=== PATIENT | female | born 1995 | race Caucasian/White ===

== ENCOUNTER → 2020-06-25 | Outpatient (CLI) | payer SELFPAY | LOC: M LABSMTC 10:01 → EEVIPCON 10:01 | PROVIDERS: ATTEND Pediatrics | DX: Z20.828 Contact with and (suspected) exposure to other viral communicable diseases (principal) ==

== ENCOUNTER → 2021-05-31 | Outpatient (REF) | payer BC | LOC: M LAB REF 16:59 | PROVIDERS: ATTEND Physician Assistant | DX: J06.9 Acute upper respiratory infection, unspecified (principal) ==

== ENCOUNTER → 2021-10-07 | Outpatient (CLI) | payer BC ==
[2021-10-07 11:50] LABS: BASO % 0.6 % (0.0-1.0); EOS # 0.1 10^3/uL (0.0-0.5); EOS % 2.1 % (0.0-3.0); HEMATOCRIT 37.1 % (36.0-47.0); HEMOGLOBIN 12.7 g/dl (12.0-15.5); LYMPH # 2.5 10^3/uL (1.5-5.0); LYMPH % 36.6 % (24.0-44.0); MEAN CORPUSCULAR HEMOGLOBIN 30.5 pg (27.0-33.0); MEAN CORPUSCULAR HGB CONC 34.2 g/dl (32.0-36.5); MONO # 0.6 10^3/uL (0.0-0.8); NEUTROPHILS # 3.5 10^3/uL (1.5-8.5); NEUTROPHILS % 51.4 % (36.0-66.0); PLATELET COUNT, AUTOMATED 209 10^3/uL (150-450); RED BLOOD COUNT 4.17 10^6/uL (4.00-5.40); WHITE BLOOD COUNT 6.7 10^3/uL (4.0-10.0)
[2021-10-07 12:22] LABS: BLOOD UREA NITROGEN 22 MG/DL (7-18); CARBON DIOXIDE LEVEL 27 MEQ/L (21-32); CHLORIDE LEVEL 107 MEQ/L (98-107); CREATININE FOR GFR 0.81 MG/DL (0.55-1.30); GLOMERULAR FILTRATION RATE > 60.0 (>60); GLUCOSE, FASTING 83 MG/DL (70-100); SODIUM LEVEL 139 MEQ/L (136-145)
[2021-10-07 12:23] LABS: ALT/SGPT 28 U/L (12-78); BILIRUBIN,TOTAL 0.5 MG/DL (0.2-1.0); CALCIUM LEVEL 8.6 MG/DL (8.5-10.1); FERRITIN 57 NG/ML (8-252); FREE T4 1.57 NG/DL (0.76-1.46); IRON (FE) 144 UG/DL (50-170); PERCENT SATURATION 55.4 % (13.2-45.0); THYROID STIMULATING HORMONE 0.808 uIU/ML (0.358-3.740); TOTAL IRON BINDING CAPACITY 260 UG/DL (250-450); TOTAL PROTEIN 7.2 GM/DL (6.4-8.2)
[2021-10-07 12:40] LABS: FOLATE 22.7 NG/ML; VITAMIN B12 LEVEL 615 PG/ML
== END ==
LOC: M LAB 10:53
PROVIDERS: ATTEND Nurse Practitioner Adult Health
DX: Z00.00 Encounter for general adult medical examination without abnormal findings (principal)

== ENCOUNTER → 2021-12-14 | Outpatient (CLI) | payer BC ==
[2021-12-14 13:28] LABS: BASO % 0.4 % (0.0-1.0); EOS # 0.1 10^3/uL (0.0-0.5); EOS % 2.1 % (0.0-3.0); LYMPH % 30.1 % (24.0-44.0); MEAN CORPUSCULAR HGB CONC 34.3 g/dl (32.0-36.5); MEAN CORPUSCULAR VOLUME 87.5 fl (80.0-96.0); MONO # 0.6 10^3/uL (0.0-0.8); MONO % 8.7 % (2.0-8.0); NEUTROPHILS % 58.6 % (36.0-66.0); PLATELET COUNT, AUTOMATED 219 10^3/uL (150-450); WHITE BLOOD COUNT 6.8 10^3/uL (4.0-10.0)
[2021-12-14 14:44] LABS: HEPATITIS C VIRUS ABY INDEX 0.1 INDEX (<0.8); HIV 1&2 SCREEN CENTAUR NEGATIVE (NEGATIVE)
[2021-12-14 14:52] LABS: GC DNA AMPLIFICATION NEGATIVE (NEGATIVE)
== END ==
LOC: M PLALAB 09:05
PROVIDERS: ATTEND Obstetrics & Gynecology
DX: Z34.80 Encounter for supervision of other normal pregnancy, unspecified trimester (principal); Z3A.00 Weeks of gestation of pregnancy not specified

== ENCOUNTER → 2022-01-05 | Outpatient (CLI) | payer BC ==
[2022-01-05 16:25] LABS: BASO % 0.2 % (0.0-1.0); HEMATOCRIT 33.3 % (36.0-47.0); HEMOGLOBIN 11.6 g/dl (12.0-15.5); LYMPH # 2.3 10^3/uL (1.5-5.0); LYMPH % 24.5 % (24.0-44.0); MEAN CORPUSCULAR HEMOGLOBIN 30.7 pg (27.0-33.0); MEAN CORPUSCULAR HGB CONC 34.8 g/dl (32.0-36.5); MEAN CORPUSCULAR VOLUME 88.1 fl (80.0-96.0); MONO # 0.7 10^3/uL (0.0-0.8); MONO % 7.7 % (2.0-8.0); NEUTROPHILS # 6.2 10^3/uL (1.5-8.5); NEUTROPHILS % 67.3 % (36.0-66.0); PLATELET COUNT, AUTOMATED 211 10^3/uL (150-450); RED BLOOD COUNT 3.78 10^6/uL (4.00-5.40); WHITE BLOOD COUNT 9.3 10^3/uL (4.0-10.0)
[2022-01-05 17:00] LABS: FERRITIN 64 NG/ML (8-252); FREE T4 1.38 NG/DL (0.76-1.46); IRON (FE) 105 UG/DL (50-170); PERCENT SATURATION 32.4 % (13.2-45.0); THYROID STIMULATING HORMONE 0.811 uIU/ML (0.358-3.740); TOTAL IRON BINDING CAPACITY 324 UG/DL (250-450)
[2022-01-05 17:01] LABS: THYROGLOBULIN ANTIBODY < 15.0 U/ML (<60.0); THYROID PEROXIDASE ANTIBODY 52.7 U/ML (<60.0)
[2022-01-05 17:02] LABS: FOLATE 19.7 NG/ML
[2022-01-05 17:41] LABS: VITAMIN B12 LEVEL 449 PG/ML
== END ==
LOC: M LAB 15:58
PROVIDERS: ATTEND Nurse Practitioner Adult Health
DX: R94.6 Abnormal results of thyroid function studies (principal)

== ENCOUNTER → 2022-01-30 | Outpatient (CLI) | payer BC | LOC: M WHC 07:14 | PROVIDERS: ATTEND Advanced Practice Midwife | DX: Z34.82 Encounter for supervision of other normal pregnancy, second trimester (principal) ==

== ENCOUNTER → 2022-03-10 | Outpatient (CLI) | payer BC | LOC: M WHC 07:01 | PROVIDERS: ATTEND Obstetrics & Gynecology | DX: Z36.2 Encounter for other antenatal screening follow-up (principal); Z3A.25 25 weeks gestation of pregnancy ==

== ENCOUNTER → 2022-04-05 | Outpatient (CLI) | payer BC ==
[2022-04-05 10:38] LABS: HEMATOCRIT 33.8 % (36.0-47.0); HEMOGLOBIN 11.3 g/dl (12.0-15.5); MEAN CORPUSCULAR HGB CONC 33.4 g/dl (32.0-36.5); MEAN CORPUSCULAR VOLUME 92.6 fl (80.0-96.0); PLATELET COUNT, AUTOMATED 207 10^3/uL (150-450); RED BLOOD COUNT 3.65 10^6/uL (4.00-5.40); WHITE BLOOD COUNT 8.3 10^3/uL (4.0-10.0)
[2022-04-05 12:16] LABS: GC DNA AMPLIFICATION NEGATIVE (NEGATIVE)
== END ==
LOC: M PLALAB 07:04
PROVIDERS: ATTEND Obstetrics & Gynecology
DX: Z34.02 Encounter for supervision of normal first pregnancy, second trimester (principal)

== ENCOUNTER → 2022-04-10 | Outpatient (CLI) | payer BC | LOC: M WHC 06:46 | PROVIDERS: ATTEND Advanced Practice Midwife | DX: Z34.03 Encounter for supervision of normal first pregnancy, third trimester (principal); Z3A.29 29 weeks gestation of pregnancy ==

== ENCOUNTER → 2022-05-19 | Outpatient (REF) | payer BC | LOC: M PLALAB 15:57 | PROVIDERS: ATTEND Advanced Practice Midwife | DX: Z36.89 Encounter for other specified antenatal screening (principal); Z3A.35 35 weeks gestation of pregnancy ==

== ENCOUNTER → 2022-12-08 | Outpatient (REF) | payer BC | LOC: M SFHCWAGY 17:45 | PROVIDERS: ATTEND Nurse Practitioner Family | DX: Z12.4 Encounter for screening for malignant neoplasm of cervix (principal) | CPT/HCPCS: 87624; G0123 ==

== ENCOUNTER → 2023-03-16 | Outpatient (CLI) | payer BC ==
[2023-03-16 14:24] LABS: FREE T4 1.26 NG/DL (0.89-1.76)
[2023-03-16 14:26] LABS: THYROID STIMULATING HORMONE 0.852 uIU/ML (0.55-4.78)
== END ==
LOC: M PLALAB 10:18
PROVIDERS: ATTEND Nurse Practitioner Adult Health
DX: R94.6 Abnormal results of thyroid function studies (principal)

== ENCOUNTER → 2024-01-04 | Outpatient (REF) | payer BC ==
[2024-01-08 16:12] LABS: HPV APTIMA Not Detected (Not Detected)
== END ==
LOC: M SFHCWAGY 17:00
PROVIDERS: ATTEND Nurse Practitioner Family
DX: Z12.4 Encounter for screening for malignant neoplasm of cervix (principal)
CPT/HCPCS: 87624; G0123

== ENCOUNTER → 2024-04-08 | Outpatient (CLI) | payer BC ==
[2024-04-08 13:18] LABS: HEMATOCRIT 35.1 % (36.0-47.0); HEMOGLOBIN 11.9 g/dl (12.0-15.5); MEAN CORPUSCULAR HEMOGLOBIN 30.3 pg (27.0-33.0); MEAN CORPUSCULAR HGB CONC 33.9 g/dl (32.0-36.5); MEAN CORPUSCULAR VOLUME 89.3 fl (80.0-96.0); PLATELET COUNT, AUTOMATED 231 10^3/uL (150-450); RED BLOOD COUNT 3.93 10^6/uL (4.00-5.40); WHITE BLOOD COUNT 7.8 10^3/uL (4.0-10.0)
[2024-04-08 13:48] LABS: HIV 1&2 SCREEN NEGATIVE (NEGATIVE)
[2024-04-08 13:57] LABS: HEPATITIS C VIRUS ABY INDEX < 0.02 INDEX (<0.8)
[2024-04-08 14:39] LABS: GC DNA AMPLIFICATION NEGATIVE (NEGATIVE)
== END ==
LOC: M PLALAB 11:01
PROVIDERS: ATTEND Advanced Practice Midwife
DX: Z34.81 Encounter for supervision of other normal pregnancy, first trimester (principal); Z3A.00 Weeks of gestation of pregnancy not specified

== ENCOUNTER → 2024-06-05 | Outpatient (CLI) | payer BC | LOC: M WHC 07:59 | PROVIDERS: ATTEND Advanced Practice Midwife | DX: Z34.82 Encounter for supervision of other normal pregnancy, second trimester (principal); Z3A.19 19 weeks gestation of pregnancy ==

== ENCOUNTER → 2024-07-14 | Outpatient (CLI) | payer BC | LOC: M WHC 07:04 | PROVIDERS: ATTEND Advanced Practice Midwife | DX: O34.211 Maternal care for low transverse scar from previous cesarean delivery (principal); Z3A.25 25 weeks gestation of pregnancy ==

== ENCOUNTER → 2024-07-21 | Outpatient (CLI) | payer BC | LOC: M WHC 09:01 | PROVIDERS: ATTEND Advanced Practice Midwife | DX: O36.5990 Maternal care for other known or suspected poor fetal growth, unspecified trimester, not applicable or unspecified (principal) ==

== ENCOUNTER → 2024-07-21 | Outpatient (CLI) | payer BC ==
[2024-07-22 07:09] LABS: RUBELLA IgG FOR TORCH EVAL 1.24 index (Immune >0.99); TOXOPLASMA IgG ABY <3.0 IU/mL (0.0-7.1)
[2024-07-22 12:43] LABS: CYTOMEGALOVIRUS ANTIBODY IGG < 0.60 U/mL (<0.60); CYTOMEGALOVIRUS IgM ANTIBODY < 30.00 AU/mL (<30.00)
[2024-07-22 12:46] LABS: HSV 1 IGG TYPE SPECIFIC < 0.90 index (<0.90); HSV 2 IGG TYPE SPECIFIC < 0.90 index (<0.90)
== END ==
LOC: M PLALAB 09:41
PROVIDERS: ATTEND Advanced Practice Midwife
DX: O36.5990 Maternal care for other known or suspected poor fetal growth, unspecified trimester, not applicable or unspecified (principal)

== ENCOUNTER → 2024-07-28 | Outpatient (CLI) | payer BC | LOC: M WHC 09:26 | PROVIDERS: ATTEND Advanced Practice Midwife | DX: O36.5990 Maternal care for other known or suspected poor fetal growth, unspecified trimester, not applicable or unspecified (principal) ==

== ENCOUNTER → 2024-08-04 | Outpatient (CLI) | payer BC | LOC: M WHC 09:37 | PROVIDERS: ATTEND Advanced Practice Midwife | DX: O36.5930 Maternal care for other known or suspected poor fetal growth, third trimester, not applicable or unspecified (principal); Z3A.28 28 weeks gestation of pregnancy ==

== ENCOUNTER → 2024-08-07 | Outpatient (CLI) | payer BC ==
[2024-08-07 17:23] LABS: HEMATOCRIT 31.5 % (36.0-47.0); HEMOGLOBIN 10.9 g/dl (12.0-15.5); MEAN CORPUSCULAR HEMOGLOBIN 31.5 pg (27.0-33.0); MEAN CORPUSCULAR HGB CONC 34.6 g/dl (32.0-36.5); PLATELET COUNT, AUTOMATED 236 10^3/uL (150-450); RED BLOOD COUNT 3.46 10^6/uL (4.00-5.40); WHITE BLOOD COUNT 8.4 10^3/uL (4.0-10.0)
[2024-08-07 17:49] LABS: GLUCOSE CHALLENGE TEST 1 HOUR 128 MG/DL (LESS THAN 140)
[2024-08-07 18:38] LABS: GC DNA AMPLIFICATION NEGATIVE (NEGATIVE)
[2024-08-07 19:25] LABS: HIV 1&2 SCREEN NEGATIVE (NEGATIVE)
[2024-08-07 19:33] LABS: HEPATITIS C VIRUS ABY INDEX < 0.02 INDEX (<0.8)
== END ==
LOC: M PLALAB 13:59
PROVIDERS: ATTEND Nurse Practitioner Family
DX: Z34.82 Encounter for supervision of other normal pregnancy, second trimester (principal); Z3A.00 Weeks of gestation of pregnancy not specified

== ENCOUNTER → 2024-08-11 | Outpatient (CLI) | payer BC | LOC: M WHC 13:43 | PROVIDERS: ATTEND Advanced Practice Midwife | DX: O36.5990 Maternal care for other known or suspected poor fetal growth, unspecified trimester, not applicable or unspecified (principal); Z3A.29 29 weeks gestation of pregnancy ==

== ENCOUNTER 2024-08-14 11:53 | Outpatient (CLI) | payer BC ==
[~2024-08-14] VITALS: Ht 157.5 cm; Wt 76.8 kg
[2024-08-14] MEDS ORDERED: PRENTAB9 PO (12:11)
[2024-08-14 12:12] VITALS: BP 126/70
== END 2024-08-14 14:30 | disposition home or self-care (01) ==
LOC: M LDO 11:53
PROVIDERS: ATTEND Advanced Practice Midwife
DX: O40.3XX9 Polyhydramnios, third trimester, other fetus (principal); O36.8339 Maternal care for abnormalities of the fetal heart rate or rhythm, third trimester, other fetus; O34.219 Maternal care for unspecified type scar from previous cesarean delivery; Z3A.29 29 weeks gestation of pregnancy; I83.92 Asymptomatic varicose veins of left lower extremity
CPT/HCPCS: 59025; 76815; 76819; 76820; G0463

== ENCOUNTER → 2024-08-18 | Outpatient (CLI) | payer BC ==
[~2024-08-18] MED LIST: PRENTAB9 PO
== END ==
LOC: M WHC 10:34
PROVIDERS: ATTEND Advanced Practice Midwife
DX: O36.8930 Maternal care for other specified fetal problems, third trimester, not applicable or unspecified (principal); Z3A.30 30 weeks gestation of pregnancy

== ENCOUNTER → 2024-08-25 | Outpatient (CLI) | payer BC | LOC: M WHC 09:10 | PROVIDERS: ATTEND Advanced Practice Midwife | DX: O36.5930 Maternal care for other known or suspected poor fetal growth, third trimester, not applicable or unspecified (principal); Z3A.31 31 weeks gestation of pregnancy ==

== ENCOUNTER → 2024-09-01 | Outpatient (CLI) | payer BC | LOC: M WHC 09:11 | PROVIDERS: ATTEND Advanced Practice Midwife | DX: O36.5990 Maternal care for other known or suspected poor fetal growth, unspecified trimester, not applicable or unspecified (principal); Z3A.32 32 weeks gestation of pregnancy ==

== ENCOUNTER → 2024-09-08 | Outpatient (CLI) | payer BC | LOC: M WHC 09:09 | PROVIDERS: ATTEND Advanced Practice Midwife | DX: O36.8930 Maternal care for other specified fetal problems, third trimester, not applicable or unspecified (principal); Z3A.33 33 weeks gestation of pregnancy ==

== ENCOUNTER → 2024-09-15 | Outpatient (CLI) | payer BC | LOC: M WHC 09:08 | PROVIDERS: ATTEND Advanced Practice Midwife | DX: O36.5990 Maternal care for other known or suspected poor fetal growth, unspecified trimester, not applicable or unspecified (principal) ==

== ENCOUNTER → 2024-09-22 | Outpatient (CLI) | payer BC | LOC: M WHC 09:06 | PROVIDERS: ATTEND Advanced Practice Midwife | DX: O36.5930 Maternal care for other known or suspected poor fetal growth, third trimester, not applicable or unspecified (principal); Z3A.36 36 weeks gestation of pregnancy ==

== ENCOUNTER → 2024-09-26 | Outpatient (REF) | payer BC | LOC: M PLALAB 08:58 | PROVIDERS: ATTEND Advanced Practice Midwife | DX: O34.211 Maternal care for low transverse scar from previous cesarean delivery (principal) ==

== ENCOUNTER → 2024-09-29 | Outpatient (CLI) | payer BC | LOC: M WHC 09:00 | PROVIDERS: ATTEND Advanced Practice Midwife | DX: O36.5990 Maternal care for other known or suspected poor fetal growth, unspecified trimester, not applicable or unspecified (principal) ==

== ENCOUNTER → 2024-10-06 | Outpatient (CLI) | payer BC | LOC: M WHC 08:58 | PROVIDERS: ATTEND Advanced Practice Midwife | DX: O36.5990 Maternal care for other known or suspected poor fetal growth, unspecified trimester, not applicable or unspecified (principal); Z3A.37 37 weeks gestation of pregnancy ==

== ENCOUNTER → 2024-10-13 | Outpatient (CLI) | payer BC | LOC: M WHC 08:53 | PROVIDERS: ATTEND Advanced Practice Midwife | DX: O36.5993 Maternal care for other known or suspected poor fetal growth, unspecified trimester, fetus 3 (principal); Z3A.38 38 weeks gestation of pregnancy ==

== ENCOUNTER → 2025-05-20 | Outpatient (CLI) | payer BC ==
[~2025-05-20] MED LIST changes: +COLA100C5 PO; +IBUP80TA PO
== END ==
LOC: M CARPUL 08:31
PROVIDERS: ATTEND Nurse Practitioner Adult Health
DX: R01.1 Cardiac murmur, unspecified (principal); I08.0 Rheumatic disorders of both mitral and aortic valves